=== PATIENT | male | born 1965 | race African-American/Black ===

== ENCOUNTER 2021-02-11 09:56 | Emergency (ER) | payer MEDICAID ==
[~2021-02-11] VITALS: Ht 177.8 cm; Wt 75.0 kg
[2021-02-11] MEDS ORDERED: IBUPROFEN 600MG TABLET PO ONE (10:45)
[2021-02-11] MEDS ORDERED: TETANUS, DIPHTHERIA, PERTUSSIS VAC/PF 0.5ML (>10YR OLD) IM ONE (10:45)
[2021-02-11] MEDS ORDERED: LIDOCAINE HCL 1% 20ML VIAL (Pyxis) INJ INFIL ONE (10:45)
[2021-02-11] MEDS ORDERED: NAPR-681 MT (12:05)
[2021-02-11 12:19] VITALS: BP 137/87
== END 2021-02-11 12:21 | disposition home or self-care (01) ==
LOC: ER 09:56
DX: S01.511A Laceration without foreign body of lip, initial encounter (principal); Y04.0XXA Assault by unarmed brawl or fight, initial encounter; Y93.89 Activity, other specified; Y92.89 Other specified places as the place of occurrence of the external cause; Y99.8 Other external cause status
CPT/HCPCS: 12011; 90471; 90715; 99283; J3490

== ENCOUNTER 2022-01-26 11:05 | Emergency (ER) | payer MEDICAID ==
[~2022-01-26] VITALS: Ht 175.3 cm; Wt 66.0 kg
[~2022-01-26 11:05] MED LIST: NAPR-681 MT
[2022-01-26 11:19] VITALS: BP 114/80
== END 2022-01-26 12:23 | disposition home or self-care (01) ==
LOC: ER 11:05
DX: M62.830 Muscle spasm of back (principal)
CPT/HCPCS: 99281